=== PATIENT | female | born 1965 ===

== ENCOUNTER 2019-10-04 13:06 | Emergency (ER) | payer OTHER ==
[~2019-10-04] VITALS: Ht 157.5 cm; Wt 59.0 kg
[~2019-10-04 13:06] MED LIST: BAYCADRON0.5 MG/5 M PO; CLARITIN10 M1 PO; CONEX TABLET1 EACH PO; OSEL75CA PO; TUSSI PRES-B L120 M1 PO
== END 2019-10-04 21:37 | disposition home or self-care (01) ==
LOC: ER 13:06
DX: R42 Dizziness and giddiness (principal); R20.0 Anesthesia of skin